=== PATIENT | female | born 1990 | race Caucasian/White ===

== ENCOUNTER → 2017-09-30 | Outpatient (CLI) | payer BC ==
[~2017-09-30] MED LIST: AZIT250 PO; BIRTH CONTROL; CETI5 PO; Cleocin HCl300 MG PO; Colace100 MG PO; Cyclobenzaprine5 MG PO; HYDACE25S PR; METR500 PO; MICROGESTIN FE PO; Miconazole 31 EACH VAG; Miralax17 GM PO; NAPR500 PO; RIZATRIPTAN5 MG PO; SERT25 PO; SUMA25 PO; TOPI50 PO
[2017-10-01 12:42] LABS: Source CERVIX/ENDOCERV
== END ==
LOC: LAB 11:22 → LAB SHORT 11:22
PROVIDERS: Nurse Practitioner Family
DX: Z01.419 Encounter for gynecological examination (general) (routine) without abnormal findings (principal)
CPT/HCPCS: G0145

== ENCOUNTER → 2018-04-14 | Outpatient (CLI) | payer BC | END | disposition home or self-care (01) | LOC: LAB EV 15:41 → LAB SHORT 15:41 | DX: J06.9 Acute upper respiratory infection, unspecified (principal) | CPT/HCPCS: 87070 ==

== ENCOUNTER → 2019-08-17 | Outpatient (CLI) | payer OTHER | END | disposition home or self-care (01) | LOC: LAB EV 17:53 → LAB SHORT 17:53 → LAB FUT 08-15 17:50 | DX: R30.9 Painful micturition, unspecified (principal) | CPT/HCPCS: 87086 ==